=== PATIENT | female | born 1995 | race Caucasian/White ===

== ENCOUNTER 2017-12-10 17:25 | Outpatient (CLI) | payer BC ==
[~2017-12-10] VITALS: Ht 167.6 cm; Wt 77.0 kg
[2017-12-10] MEDS ORDERED: PRENATAL TABLE1 EAC3 PO (17:55)
[2017-12-10] MEDS ORDERED: PYRIDIUM100 MG PO (17:56)
[2017-12-10 18:05] LABS: BASOPHIL (%) 0.1 % (0-1); EOSINOPHIL (%) 0.2 % (0-5); HEMATOCRIT 33.5 % (36.0-46.0); HEMOGLOBIN 11.8 G/DL (11.9-15.5); IMMATURE GRANULOCYTE (%) 0.3 % (0.0-0.7); LYMPHOCYTE (%) 12.2 % (15-42); LYMPHOCYTE COUNT 1.1 K/uL (1.0-2.8); MCH 32.8 PG (29.0-34.0); MCHC 35.2 G/DL (30.0-36.0); MCV 93.1 FL (83-99); MONOCYTE (%) 6.8 % (3-12); MONOCYTE COUNT 0.6 K/uL (0-0.8); NEUTROPHIL (%) 80.4 % (45-76); NEUTROPHIL COUNT 7.1 K/uL (1.8-6.4); PLATELET COUNT 148 K/uL (156-360); RBC DIS.WIDTH-CV 12.8 % (11.8-14.6); RBC DIS.WIDTH-SD 43.6 % (39-53); WHITE BLOOD COUNT 8.9 K/uL (4.1-10.2)
[2017-12-10 18:06] VITALS: BP 112/72
[2017-12-10 18:17] LABS: ALBUMIN 3.8 g/dL (3.2-4.8); CHLORIDE 107 mEq/L (99-109); POTASSIUM 3.8 mEq/L (3.7-5.4); SODIUM 139 mEq/L (136-147)
[2017-12-10 18:19] LABS: GLUCOSE 84 mg/dL (70-99); TOTAL PROTEIN 6.7 g/dL (6.4-8.3)
[2017-12-10 18:21] LABS: TOTAL BILIRUBIN 0.5 mg/dL (0.0-1.0)
[2017-12-10 18:23] LABS: ALKALINE PHOSPHATASE 97 IU/L (3-129); CREATININE 0.7 mg/dL (0.6-1.3); GFR ESTIMATE (CALCULATED) > 59 mL/min/
[2017-12-10 18:24] LABS: AST (GOT) 20 IU/L (2-34); UREA NITROGEN (BUN) 6 mg/dL (9-23)
[2017-12-10 18:26] LABS: ALT (GPT) 23 IU/L (3-49)
[2017-12-10 18:28] LABS: APPEARANCE CLEAR ((CLEAR)); BILIRUBIN NEGATIVE; BLOOD NEGATIVE; COLOR YELLOW ((YELLOW)); GLUCOSE (STRIP) NEGATIVE; KETONES NEGATIVE; LEUKOCYTES LARGE; NITRITE NEGATIVE; PROTEIN (STRIP) 30; SPECIFIC GRAVITY 1.026 (1.000-1.030); UROBILINOGEN 0.2 MG/DL (0.2-1.0)
[2017-12-10 18:38] LABS: BACTERIA RARE /HPF; EPITHELIAL CELLS 2+ /HPF; MUCUS 2+ /LPF; RED BLOOD CELLS 0-5 /HPF (0-5); UCUL ADDED? YES
[2017-12-10 19:15] LABS: CANDIDA DNA PROBE NEGATIVE; GARDNERELLA DNA PROBE NEGATIVE; TRICHOMONAS DNA PROBE NEGATIVE
[2017-12-10 21:17] VITALS: BP 125/64
[2017-12-10 21:36] VITALS: BP 113/70
[2017-12-10 21:57] VITALS: BP 122/72
== END 2017-12-10 22:37 | disposition short-term general hospital (02) ==
LOC: LDRP-OP 17:25 → 2WEST 17:26
PROVIDERS: Obstetrics & Gynecology
DX: O60.03 Preterm labor without delivery, third trimester (principal); O30.043 Twin pregnancy, dichorionic/diamniotic, third trimester; Z83.3 Family history of diabetes mellitus; Z88.2 Allergy status to sulfonamides; Z3A.29 29 weeks gestation of pregnancy
CPT/HCPCS: 59025; 80053; 81003; 85025; 87081; 87086; 87480; 87510; 87660; G0378; J0290; J0702; J3475; J7050; J7120

== ENCOUNTER 2017-12-16 11:34 | Outpatient (CLI) | payer BC ==
[~2017-12-16 11:34] MED LIST: PRENATAL TABLE1 EAC3 PO; PYRIDIUM100 MG PO
[2017-12-16 11:55] VITALS: BP 115/75
[2017-12-16] MEDS ORDERED: PROCARDIA20 MG PO (12:29)
[2017-12-16 13:58] VITALS: BP 112/74
[2017-12-16 14:29] VITALS: BP 118/76
[2017-12-16 15:17] LABS: APPEARANCE SL.HAZY ((CLEAR)); BILIRUBIN NEGATIVE; BLOOD SMALL; COLOR YELLOW ((YELLOW)); GLUCOSE (STRIP) NEGATIVE; KETONES NEGATIVE; LEUKOCYTES SMALL; NITRITE NEGATIVE; PROTEIN (STRIP) NEGATIVE; SPECIFIC GRAVITY 1.012 (1.000-1.030)
[2017-12-16 15:30] LABS: BACTERIA RARE /HPF; EPITHELIAL CELLS 1+ /HPF; MUCUS TRACE /LPF; UCUL ADDED? NO; WHITE BLOOD CELLS 0-5 /HPF (0-5)
[2017-12-16 19:43] VITALS: BP 125/85
[2017-12-16 21:32] VITALS: BP 125/78
[2017-12-17 02:17] VITALS: BP 112/73
[2017-12-17 06:15] VITALS: BP 102/66
[2017-12-17 10:20] VITALS: BP 115/68
[2017-12-17 12:44] LABS: BASOPHIL (%) 0.1 % (0-1); EOSINOPHIL (%) 0.1 % (0-5); HEMATOCRIT 29.9 % (36.0-46.0); HEMOGLOBIN 10.3 G/DL (11.9-15.5); IMMATURE GRANULOCYTE (%) 0.7 % (0.0-0.7); LYMPHOCYTE (%) 3.9 % (15-42); LYMPHOCYTE COUNT 0.5 K/uL (1.0-2.8); MCHC 34.4 G/DL (30.0-36.0); MCV 92.9 FL (83-99); MONOCYTE (%) 7.1 % (3-12); NEUTROPHIL (%) 88.1 % (45-76); NEUTROPHIL COUNT 11.9 K/uL (1.8-6.4); PLATELET COUNT 136 K/uL (156-360); RBC DIS.WIDTH-CV 12.8 % (11.8-14.6); RBC DIS.WIDTH-SD 43.7 % (39-53); RED BLOOD COUNT 3.22 M/uL (3.80-5.20); WHITE BLOOD COUNT 13.5 K/uL (4.1-10.2)
[2017-12-17 14:07] VITALS: BP 115/66
[2017-12-17 18:00] VITALS: BP 115/67
[2017-12-17 22:08] VITALS: BP 109/59
[2017-12-18] VITALS (8 sets, daily range): BP systolic 92–111; BP diastolic 46–64
[2017-12-18 06:04] LABS: BASOPHIL (%) 0.1 % (0-1); EOSINOPHIL (%) 0 % (0-5); HEMATOCRIT 28.2 % (36.0-46.0); HEMOGLOBIN 9.5 G/DL (11.9-15.5); IMMATURE GRANULOCYTE (%) 1.3 % (0.0-0.7); LYMPHOCYTE (%) 2.4 % (15-42); LYMPHOCYTE COUNT 0.3 K/uL (1.0-2.8); MCH 31.9 PG (29.0-34.0); MCHC 33.7 G/DL (30.0-36.0); MCV 94.6 FL (83-99); MONOCYTE (%) 8.8 % (3-12); MONOCYTE COUNT 0.9 K/uL (0-0.8); NEUTROPHIL (%) 87.4 % (45-76); NEUTROPHIL COUNT 9.4 K/uL (1.8-6.4); PLATELET COUNT 117 K/uL (156-360); RBC DIS.WIDTH-CV 12.5 % (11.8-14.6); RBC DIS.WIDTH-SD 43.4 % (39-53); RED BLOOD COUNT 2.98 M/uL (3.80-5.20); WHITE BLOOD COUNT 10.7 K/uL (4.1-10.2)
== END 2017-12-18 16:40 | disposition short-term general hospital (02) ==
LOC: LDRP-OP 11:34 → 2WEST 11:35 → LDRP-OP 03-24 23:08
PROVIDERS: Obstetrics & Gynecology
DX: O60.03 Preterm labor without delivery, third trimester (principal); O30.043 Twin pregnancy, dichorionic/diamniotic, third trimester; O26.893 Other specified pregnancy related conditions, third trimester; R00.0 Tachycardia, unspecified; R11.10 Vomiting, unspecified; R19.7 Diarrhea, unspecified; R50.9 Fever, unspecified; Z3A.30 30 weeks gestation of pregnancy
CPT/HCPCS: 59025; 76818; 81003; 83605; 85025; 87040; G0378; J0290; J0295; J1580; J7050; J7120